=== PATIENT | male | born 1995 | race Caucasian/White ===

== ENCOUNTER 2017-09-25 18:29 | Emergency (ER) | payer BC ==
[~2017-09-25] VITALS: Ht 182.9 cm; Wt 70.0 kg
[2017-09-25 18:31] VITALS: BP 142/91; PULSE 85; RESP 16; TEMP 98.5; O2SAT 100
--- NOTE | 2017-09-25 19:54 | PD ---
HPI Chief Complaint: Injury Time Seen by Provider: 19:30 Travel History International Travel<30 days: No Contact w/Intl Traveler<30days: No Traveled to known affect area: No History of Present Illness HPI This is a 22-year-old male who presents to the emergency department having fallen off of his surfboard hitting his right elbow. He is moderate severity pain involving his right elbow, constant, worse with movement, improved with rest. He also has a abrasion on his right elbow. He denies any other injuries. [facility] Past Medical History Medical History: Denies Significant Hx Social History Alcohol Use: Yes Tobacco Use: No Allergies-Medications (Allergen,Severity, Reaction): Coded Allergies: Penicillins (Verified Allergy, Unknown, 09/25/17) Reported Meds & Prescriptions Reported Meds & Active Scripts Active No Active Prescriptions or Reported Medications Review of Systems Except as stated in HPI: all other systems reviewed are Neg Physical Exam Narrative GENERAL:Well appearing, no acute distress SKIN: 1 cm abrasion on the right elbow HEAD: Atraumatic. Normocephalic. EYES: Pupils equal and round. No injection or drainage. ENT: Moist mucous membranes NECK: Trachea midline. CARDIOVASCULAR: Regular rate and rhythm. No murmur appreciated. Right radial pulse with normal capillary refill. RESPIRATORY: Clear to auscultation. Breath sounds equal bilaterally. GASTROINTESTINAL: Abdomen soft, non-tender, nondistended. MUSCULOSKELETAL: Tender to palpation over the medial and lateral epicondyles of the right elbow with pain with extension at the right elbow. NEUROLOGICAL: Awake and alert. No obvious cranial nerve deficits. Sensation and motor intact in the median, ulnar and radial distributions of the right hand. PSYCHIATRIC: Appropriate mood and affect; insight and judgment normal. Data Data Last Documented VS Vital Signs Date Time Temp Pulse Resp B/P (MAP) Pulse Ox O2 Delivery O2 Flow Rate FiO2 09/25/17 18:45 16 98 Room Air 09/25/17 18:31 98.5 85 142/91 (108) Orders Orders Elbow, Complete (4 Vws) (09/25/17 ) [facility] Medical Decision Making Medical Screen Exam Complete: Yes Emergency Medical Condition: Yes Interpretation(s) Afebrile, no tachycardia, hypertensive xray elbow: No acute fracture Differential Diagnosis Humerus fracture, radius fracture, ulnar fracture, elbow sprain Narrative Course This is a 22-year-old male who presents to the emergency department having sustained an injury when he was surfing hurting his right elbow. He has a normal neurovascular exam. X-rays negative for acute fracture. He is a small abrasion on the elbow but doesn't require repair. I think he can be discharged home with an Constantine wrap and instructions for ice, elevation and compression. Diagnosis Primary Impression: Sprain of elbow Qualified Codes: S53.401A - Unspecified sprain of right elbow, initial encounter Patient Instructions: General Instructions Additional Instructions: If you develop increasing pain, numbness, weakness or worsening swelling return to the emergency room. Constantine wrap, ice, rest and elevate your elbow. Med/Other Pt SpecificInfo: No Change to Meds Scripts No Active Prescriptions or Reported Meds Disposition: 01 DISCHARGE HOME Condition: Stable Vivian Tijerina MD Sep 25, 2017 19:54
--- NOTE | 2017-09-25 20:03 | RADRPT ---
EXAM DATE/TIME: 09/25/2017 19:43 [facility] COMPARISON: No previous studies available for comparison. INDICATIONS : Right elbow pain post fall MEDICAL HISTORY : None. SURGICAL HISTORY : None. ENCOUNTER: Initial ACUITY: 1 day PAIN SCORE: 7/10 LOCATION: Right upper extremity FINDINGS: Multiple view examination of the right elbow demonstrates no soft tissue swelling, joint effusion, or fracture. The osseous structures are in normal alignment. Bony mineralization is normal. CONCLUSION: Normal radiographic appearance of the right elbow. Garo Fuentes MD on September 25, 2017 at 20:01 Board Certified Radiologist. This report was verified electronically.
== END 2017-09-25 20:33 | disposition home or self-care (01) ==
LOC: NEPD 18:29
DX: S53.401A Unspecified sprain of right elbow, initial encounter (principal); S50.311A Abrasion of right elbow, initial encounter; W01.198A Fall on same level from slipping, tripping and stumbling with subsequent striking against other object, initial encounter; Y93.18 Activity, surfing, windsurfing and boogie boarding; Y92.832 Beach as the place of occurrence of the external cause
CPT/HCPCS: 73080; 99283